=== PATIENT | male | born 1975 | race Caucasian/White ===

== ENCOUNTER 2018-02-18 18:28 | Emergency (ER) | payer BC ==
[2018-02-18] MEDS ORDERED: KETOROLAC 30 MG/ML 1 ML VIAL IVP STA (19:11)
[2018-02-18] MEDS ORDERED: ONDANSETRON 4 MG/2 ML VIAL IVP STA (19:11)
--- NOTE | 2018-02-18 19:16 | ED ---
General Adult HPI - General Chief complaint: Abdominal Pain Stated complaint: Kidney stones Source: patient Mode of arrival: ambulatory Limitations: no limitations - Related Data Home Medications Medication Instructions Recorded Confirmed Calcium Carbonate [Tums] 500 mg PO BID PRN 02/18/18 02/18/18 Ibuprofen [Motrin Ib] 800 mg PO TID PRN 02/18/18 02/18/18 Multivitamins, Thera [Multivitamin 1 tab PO DAILY 02/18/18 02/18/18 (formulary)] Omeprazole 20 mg PO DAILY PRN 02/18/18 02/18/18 Previous Rx's Medication Instructions Recorded HYDROcodone/APAP 5-325MG [[place] 1 tab PO Q6HR PRN 3 Days #12 tab 02/18/18 5-325] Ketorolac [Toradol] 10 mg PO Q6HR PRN #12 tab 02/18/18 Ondansetron Odt [Zofran Odt] 4 mg PO Q8HR PRN #12 tab 02/18/18 Tamsulosin HCl [Flomax] 0.4 mg PO DAILY 12 Days #12 capsule 02/18/18 Allergies Allergy/AdvReac Type Severity Reaction Status Date / Time No Known Allergies Allergy Verified 02/18/18 19:39 Review of Systems ROS Statement: Those systems with pertinent positive or pertinent negative responses have been documented in the HPI. ROS Other: All systems not noted in ROS Statement are negative. Past Medical History Additional Past Medical History / Comment(s): kidney stones History of Any Multi-Drug Resistant Organisms: None Reported Past Surgical History: Appendectomy Past Psychological History: No Psychological Hx Reported Smoking Status: Never smoker Past Alcohol Use History: None Reported, Rare Past Drug Use History: None Reported General Exam Limitations: no limitations Course Vital Signs 02/18/18 18:40 Temperature 98.9 F Pulse Rate 96 Respiratory 18 Rate Blood Pressure 153/100 O2 Sat by Pulse 96 Oximetry Medical Decision Making - Medical Decision Making Dictation was produced using [employer] dictation software. please excuse any grammatical, word or spelling errors. Chief Complaint: 43-year-old male past medical history of kidney stones presents with left lower quadrant abdominal pain. History of Present Illness: She states he had an episode approximately 1 week ago. He states that today his symptoms recur. Patient denies any history of diverticulitis. Does report having history of kidney stones. Patient states that his episode started about 4 hours prior to arrival. He states that the pain is constant and located to left lower quadrant radiating to his groin. He states his symptoms aren't typical of his episode of kidney stones. Denies any stool or bowel habit changes. Does complain of nausea but no vomiting. Constitutional symptoms. He is accompanied by family who states he looks pale. The ROS documented in this emergency department record has been reviewed and confirmed by me. Those systems with pertinent positive or negative responses have been documented in the HPI. All other systems are other negative and/or noncontributory. PHYSICAL EXAM: General Impression: Alert and oriented x3, not in acute distress HEENT: Normocephalic atraumatic, extra-ocular movements intact, pupils equal and reactive to light bilaterally, mucous membranes moist. Cardiovascular: Heart regular rate and rhythm, S1&S2 audible, no murmurs, rubs or gallops Chest: Lungs clear to auscultation bilaterally, no rhonchi, no wheeze, no rales Abdomen: Bowel sounds present, abdomen soft, mild tenderness to the left lower quadrant Musculoskeletal: Pulses present and equal in all extremities, no peripheral edema Motor: Power 5/5 bilaterally, no focal deficits noted Neurological: CN II-XII grossly intact, no focal motor or sensory deficits noted Skin: Intact with no visualized rashes Psych: Normal affect and mood ED course: 43-year-old male presents with chief complaint of left lower quadrant abdominal pain/groin pain. Vital signs upon arrival are within acceptable limits. Clinical presentation is suspicious for diverticulitis versus nephrolithiasis. Laboratory evaluation obtained. Leukocytosis 10.9. Rest of CBC unremarkable. Metabolic panel is unremarkable. Urinalysis does not show any signs of urinary tract infections is [address] abdomen and pelvis is obtained showing nephrolithiasis. There is signs of hydronephrosis. There is a left renal calculus and also a proximal ureteral stone. Patient reevaluated given fluids patient appears to be well after fluids and analgesia. Patient given prescription for pain, Flomax and antinausea medication. Patient told to follow -up with his urologist for reevaluation. - Lab Data Result diagrams: 02/18/18 18:59 02/18/18 18:59 Lab Results 02/18/18 02/18/18 02/18/18 Range/Units 18:59 18:59 18:59 WBC 10.9 H (3.8-10.6) k/uL RBC 5.32 (4.30-5.90) m/uL Hgb 15.9 (13.0-17.5) gm/dL Hct 46.0 (39.0-53.0) % MCV 86.5 (80.0-100.0) fL MCH 29.9 (25.0-35.0) pg MCHC 34.5 (31.0-37.0) g/dL RDW 12.9 (11.5-15.5) % Plt Count 173 (150-450) k/uL Neutrophils % 73 % Lymphocytes % 20 % Monocytes % 5 % Eosinophils % 1 % Basophils % 0 % Neutrophils # 7.9 H (1.3-7.7) k/uL Lymphocytes # 2.1 (1.0-4.8) k/uL Monocytes # 0.5 (0-1.0) k/uL Eosinophils # 0.1 (0-0.7) k/uL Basophils # 0.0 (0-0.2) k/uL Sodium 140 (137-145) mmol/L Potassium 4.0 (3.5-5.1) mmol/L Chloride 105 (98-107) mmol/L Carbon Dioxide 24 (22-30) mmol/L Anion Gap 11 mmol/L BUN 14 (9-20) mg/dL Creatinine 1.18 (0.66-1.25) mg/dL Est GFR (CKD-EPI)AfAm 87 (>60 ml/min/1.73 sqM) Est GFR (CKD-EPI)NonAf 75 (>60 ml/min/1.73 sqM) Glucose 155 H (74-99) mg/dL Calcium 9.7 (8.4-10.2) mg/dL Total Bilirubin 0.6 (0.2-1.3) mg/dL AST 69 H (17-59) U/L ALT 118 H (21-72) U/L Alkaline Phosphatase 71 (38-126) U/L Total Protein 7.8 (6.3-8.2) g/dL Albumin 4.4 (3.5-5.0) g/dL Lipase 153 (23-300) U/L Urine Color Yellow Urine Appearance Clear (Clear) Urine pH 7.0 (5.0-8.0) Ur Specific [place] 1.027 (1.001-1.035) Urine Protein 1+ H (Negative) Urine Glucose (UA) Negative (Negative) Urine Ketones Negative (Negative) Urine Blood Moderate H (Negative) Urine Nitrite Negative (Negative) Urine Bilirubin Negative (Negative) Urine Urobilinogen 3.0 (<2.0) mg/dL Ur Leukocyte Esterase Negative (Negative) Urine RBC 44 H (0-5) /hpf Urine WBC 1 (0-5) /hpf Urine Mucus Rare H (None) /hpf Disposition Clinical Impression: Nephrolithiasis Disposition: HOME SELF-CARE Condition: Good Instructions: Kidney Stones (ED) Prescriptions: HYDROcodone/APAP 5-325MG [[place] 5-325] 1 tab PO Q6HR PRN 3 Days #12 tab PRN Reason: Severe Pain Ketorolac [Toradol] 10 mg PO Q6HR PRN #12 tab PRN Reason: Pain Ondansetron Odt [Zofran Odt] 4 mg PO Q8HR PRN #12 tab PRN Reason: Nausea Tamsulosin HCl [Flomax] 0.4 mg PO DAILY 12 Days #12 capsule Is patient prescribed a controlled substance at d/c from ED?: Yes If prescribed controlled substance>3 days was MAPS reviewed?: Prescribed <3 Days Referrals: Yoni Mckeon MD [Primary Care Provider] - 1-2 days Imer Belle MD [STAFF PHYSICIAN] - 1-2 days Time of Disposition: 20:32
[2018-02-18 19:57] LABS: Basophils % (A) 0 %; Eosinophils # (A) 0.1 k/uL (0-0.7); Eosinophils % (A) 1 %; HGB 15.9 gm/dL (13.0-17.5); Lymphocytes # (A) 2.1 k/uL (1.0-4.8); Lymphocytes % (A) 20 %; MCH 29.9 pg (25.0-35.0); MCHC 34.5 g/dL (31.0-37.0); MCV 86.5 fL (80.0-100.0); Mean Platelet Volume 7.8; Monocytes # (A) 0.5 k/uL (0-1.0); Monocytes % (A) 5 %; Neutrophils # (A) 7.9 k/uL (1.3-7.7); Neutrophils % (A) 73 %; Platelet Count 173 k/uL (150-450); RBC 5.32 m/uL (4.30-5.90); RDW 12.9 % (11.5-15.5); WBC 10.9 k/uL (3.8-10.6)
[2018-02-18 20:05] LABS: Albumin 4.4 g/dL (3.5-5.0); Calcium 9.7 mg/dL (8.4-10.2); Total Bilirubin 0.6 mg/dL (0.2-1.3); Total Protein 7.8 g/dL (6.3-8.2)
[2018-02-18 20:07] LABS: Appearance,Urine Clear (Clear); Bilirubin,Urine Negative (Negative); Blood,Urine Moderate (Negative); Color,Urine Yellow; Glucose,Urine (UA) Negative (Negative); Ketones,Urine Negative (Negative); Leukocyte Esterase,Urine Negative (Negative); Mucus,Urine Rare /hpf; Nitrite,Urine Negative (Negative); Protein,Urine 1+ (Negative); RBC,Urine 44 /hpf (0-5); Specific Gravity,Urine 1.027 (1.001-1.035); WBC,Urine 1 /hpf (0-5)
--- NOTE | 2018-02-18 20:09 | CT ---
EXAMINATION TYPE: CT abdomen pelvis w con DATE OF EXAM: 02/18/2018 COMPARISON: March 15, 2012 HISTORY: LLQ pain, nausea CT DLP: 1528.7 mGycm Automated exposure control for dose reduction was used. TECHNIQUE: Helical acquisition of images was performed from the lung bases through the pelvis. CONTRAST: Performed without Oral Contrast and with IV Contrast, patient injected with 100 mL of Isovue 300. FINDINGS: Lung bases are clear. There is no pleural effusion. Heart size is normal. There is no pericardial eff usion. There is fatty infiltration of the liver. The bile ducts are not dilated. Stomach appears norm al. Spleen appears normal. There is no pancreatic mass. Gallbladder is somewhat contracted. There is no adrenal mass. Kidneys show satisfactory contrast opacification. There is left-sided hydro nephrosis and hydroureter. There is 5 mm calculus in the proximal left ureter. Bladder distends jimena hly. There is no inguinal hernia. There is no free fluid in the pelvis. There is no mesenteric edema or adenopathy. There are clips at the cecum. I see no evidence of a linda l obstruction. There is no free air. There is possible 3 mm calculus lower pole left kidney. The lumbar spine is intact. I see no bony destructive process. There is small posterior disc herniati on at L5-S1. IMPRESSION: LEFT-SIDED HYDRONEPHROSIS WITH OBSTRUCTING CALCULUS IN THE PROXIMAL LEFT URETER. SMALL LEFT RENAL RIDDHI CULUS. OBSTRUCTION IS NEW COMPARED TO OLD EXAM.
[2018-02-18] MEDS ORDERED: MORPHINE SULFATE 2 MG/ML SYRINGE IVP STA (20:40)
[2018-02-18 20:53] VITALS: BP 153/92; PULSE 76; RESP 16; TEMP 97.8
== END 2018-02-18 20:52 | disposition home or self-care (01) ==
LOC: EC 18:28
DX: N13.2 Hydronephrosis with renal and ureteral calculous obstruction (principal)
CPT/HCPCS: 36415; 80053; 83690; 85025; 81001; 74177; 99284; 96374; 96375 ×2; J2405; J1885; J2270; Q9967

== ENCOUNTER 2018-12-28 04:29 | Inpatient (IN) | payer BC ==
[2018-12-28] MEDS ORDERED: SODIUM CHLORIDE 0.9% 1,000 ML IV STA (04:55)
[2018-12-28] MEDS ORDERED: ONDANSETRON 4 MG/2 ML VIAL IVP STA ×2 (04:55→06:14)
--- NOTE | 2018-12-28 05:15 | ED ---
General Adult HPI - General Chief complaint: Abdominal Pain Stated complaint: Vomiting,constipated Time Seen by Provider: 12/28/18 04:41 Source: patient, RN notes reviewed Mode of arrival: ambulatory Limitations: no limitations - History of Present Illness Initial comments: 43-year-old male presenting for evaluation of abdominal pain nausea vomiting. Abby whitlock is an otherwise healthy 43-year-old. He has no chronic medical conditions. He has two children who had gastrointestinal illnesses including vomiting and diarrhea. Around 1 AM this morning 4 hours prior to arrival patient had large volume vomiting with crampy generalized abdominal pain. He had a second episode of vomiting which she describes as yellow. He's had diffuse abdominal pain and cramping over the past 4 hours. He reports very low stool output and is presenting emergency department with concern for obstruction. He has previous appendectomy. He reports subjective fever and chills. No right upper quadrant pain. - Related Data Home Medications Medication Instructions Recorded Confirmed Calcium Carbonate [Tums] 500 mg PO BID PRN 02/18/18 02/18/18 Ibuprofen [Motrin Ib] 800 mg PO TID PRN 02/18/18 02/18/18 Multivitamins, Thera [Multivitamin 1 tab PO DAILY 02/18/18 02/18/18 (formulary)] Omeprazole 20 mg PO DAILY PRN 02/18/18 02/18/18 Previous Rx's Medication Instructions Recorded HYDROcodone/APAP 5-325MG [[place] 1 tab PO Q6HR PRN 3 Days #12 tab 02/18/18 5-325] Ketorolac [Toradol] 10 mg PO Q6HR PRN #12 tab 02/18/18 Ondansetron Odt [Zofran Odt] 4 mg PO Q8HR PRN #12 tab 02/18/18 Tamsulosin HCl [Flomax] 0.4 mg PO DAILY 12 Days #12 capsule 02/18/18 Allergies Allergy/AdvReac Type Severity Reaction Status Date / Time No Known Allergies Allergy Verified 12/28/18 04:36 Review of Systems ROS Statement: Those systems with pertinent positive or pertinent negative responses have been documented in the HPI. ROS Other: All systems not noted in ROS Statement are negative. Past Medical History Additional Past Medical History / Comment(s): kidney stones History of Any Multi-Drug Resistant Organisms: None Reported Past Surgical History: Appendectomy Past Psychological History: No Psychological Hx Reported Smoking Status: Never smoker Past Alcohol Use History: Rare Past Drug Use History: None Reported General Exam Limitations: no limitations General appearance: alert, in no apparent distress Head exam: Present: atraumatic, normocephalic Eye exam: Present: normal appearance, PERRL ENT exam: Present: mucous membranes dry Neck exam: Present: normal inspection. Absent: tenderness, meningismus Respiratory exam: Present: normal lung sounds bilaterally. Absent: respiratory distress, wheezes Cardiovascular Exam: Present: regular rate, normal rhythm GI/Abdominal exam: Present: soft, tenderness (Minimal generalized tenderness). Absent: distended, guarding, rebound Extremities exam: Present: normal inspection Neurological exam: Present: alert, oriented X3. Absent: motor sensory deficit Skin exam: Present: warm, dry, intact. Absent: cyanosis, diaphoretic Course Vital Signs 12/28/18 12/28/18 04:34 06:21 Temperature 98.9 F Pulse Rate 105 H 86 Respiratory 20 18 Rate Blood Pressure 123/87 131/98 O2 Sat by Pulse 96 96 Oximetry Medical Decision Making - Medical Decision Making 43 -year-old presenting with vomiting generalized abdominal pain. Patient's abdomen is soft, mildly tender. His children had a gastrointestinal illness with vomiting and diarrhea. He has not progressed to diarrhea since the onset of his symptoms. X-rays obtained, shows ileus versus developing small bowel obstruction. CT is performed which shows dilated small bowel concerning for developing small bowel obstruction although there is no transition point. CT also does show any millimeter obstructing renal calculus at the left UVJ. Patient has dealt with kidney stones and states he has had flank pain for several days. No reported hematuria. He has normal CBC with no leukocytosis. Normal electrolytes. Urinalysis shows 1+ ketones consistent with dehydration and 9 red cells with 6 white cells and rare bacteria. Urine culture will be obtained. Patient will be admitted for symptom control for possibility of developing small bowel obstruction. History is more suggestive of gastrointestinal illness by will observe for possible small bowel obstruction. Case discussed with Dr. Mckeon who will admit. Gen. surgery placed on consult. - Lab Data Result diagrams: 12/28/18 05:15 12/28/18 05:15 Lab Results 12/28/18 12/28/18 12/28/18 Range/Units 05:15 05:15 05:15 WBC 10.2 (3.8-10.6) k/uL RBC 5.66 (4.30-5.90) m/uL Hgb 17.3 (13.0-17.5) gm/dL Hct 49.3 (39.0-53.0) % MCV 87.1 (80.0-100.0) fL MCH 30.5 (25.0-35.0) pg MCHC 35.0 (31.0-37.0) g/dL RDW 12.5 (11.5-15.5) % Plt Count 194 (150-450) k/uL Neutrophils % 88 % Lymphocytes % 7 % Monocytes % 4 % Eosinophils % 0 % Basophils % 0 % Neutrophils # 9.0 H (1.3-7.7) k/uL Lymphocytes # 0.7 L (1.0-4.8) k/uL Monocytes # 0.4 (0-1.0) k/uL Eosinophils # 0.0 (0-0.7) k/uL Basophils # 0.0 (0-0.2) k/uL Sodium 139 (137-145) mmol/L Potassium 4.2 (3.5-5.1) mmol/L Chloride 104 (98-107) mmol/L Carbon Dioxide 22 (22-30) mmol/L Anion Gap 13 mmol/L BUN 19 (9-20) mg/dL Creatinine 1.12 (0.66-1.25) mg/dL Est GFR (CKD-EPI)AfAm >90 (>60 ml/min/1.73 sqM) Est GFR (CKD-EPI)NonAf 80 (>60 ml/min/1.73 sqM) Glucose 176 H (74-99) mg/dL Calcium 9.8 (8.4-10.2) mg/dL Total Bilirubin 1.0 (0.2-1.3) mg/dL AST 42 (17-59) U/L ALT 60 (21-72) U/L Alkaline Phosphatase 69 (38-126) U/L Total Protein 8.4 H (6.3-8.2) g/dL Albumin 4.7 (3.5-5.0) g/dL Lipase 72 (23-300) U/L Urine Color Yellow Urine Appearance Cloudy (Clear) Urine pH 6.0 (5.0-8.0) Ur Specific [place] 1.035 (1.001-1.035) Urine Protein 2+ H (Negative) Urine Glucose (UA) Trace H (Negative) Urine Ketones 1+ H (Negative) Urine Blood Moderate H (Negative) Urine Nitrite Negative (Negative) Urine Bilirubin Negative (Negative) Urine Urobilinogen <2.0 (<2.0) mg/dL Ur Leukocyte Esterase Negative (Negative) Urine RBC 9 H (0-5) /hpf Urine WBC 6 H (0-5) /hpf Ur Squamous Epith Cells 1 (0-4) /hpf Amorphous Sediment Occasional H (None) /hpf Urine Bacteria Rare H (None) /hpf Hyaline Casts 23 H (0-2) /lpf Urine Mucus Many H (None) /hpf Disposition Clinical Impression: Small bowel obstruction Disposition: ADMITTED IP TO THIS HOSP Condition: Stable Is patient prescribed a controlled substance at d/c from ED?: No Referrals: Yoni Mckeon MD [Primary Care Provider] - 1-2 days Time of Disposition: 06:37
--- NOTE | 2018-12-28 05:28 | XR ---
Abdomen single view. History abdominal pain. Comparison to 413. FINDINGS: There are some small bowel fluid levels in the upper abdomen. There clips in the right lower quadrant . There is no sign of free air. IMPRESSION: Distended small bowel with air-fluid levels could relate to partial mechanical obstruction or small b owel ileus that is a change compared to last exam. No free air.
[2018-12-28 05:54] LABS: ALT 60 U/L (21-72); AST 42 U/L (17-59); African American GFR (CKD) >90 (>60 ml/min/1.73 sqM); Albumin 4.7 g/dL (3.5-5.0); Alkaline Phosphatase 69 U/L (38-126); Anion Gap 13 mmol/L; Blood Urea Nitrogen 19 mg/dL (9-20); Calcium 9.8 mg/dL (8.4-10.2); Carbon Dioxide 22 mmol/L (22-30); Chloride 104 mmol/L (98-107); Glucose 176 mg/dL (74-99); Non-African American GFR(CKD) 80 (>60 ml/min/1.73 sqM); Potassium 4.2 mmol/L (3.5-5.1); Sodium 139 mmol/L (137-145); Total Protein 8.4 g/dL (6.3-8.2)
[2018-12-28 06:02] LABS: Amorphous Sediment,Urine Occasional /hpf; Appearance,Urine Cloudy (Clear); Bacteria,Urine Rare /hpf; Bilirubin,Urine Negative (Negative); Blood,Urine Moderate (Negative); Color,Urine Yellow; Glucose,Urine (UA) Trace (Negative); Hyaline Casts,Urine 23 /lpf (0-2); Ketones,Urine 1+ (Negative); Leukocyte Esterase,Urine Negative (Negative); Mucus,Urine Many /hpf; Nitrite,Urine Negative (Negative); Protein,Urine 2+ (Negative); RBC,Urine 9 /hpf (0-5); Specific Gravity,Urine 1.035 (1.001-1.035); Squamous Epithelial Cell,Urine 1 /hpf (0-4); Urobilinogen,Urine <2.0 mg/dL (<2.0); WBC,Urine 6 /hpf (0-5)
[2018-12-28] MEDS ORDERED: HYDROmorphone 1 MG/ML 1 ML SYRINGE IVP STA (06:02)
[2018-12-28] MEDS ORDERED: SODIUM CHLORIDE 0.9% 500 ML 500 ML IV ONE (06:03)
[2018-12-28 06:09] LABS: Basophils % (A) 0 %; Eosinophils % (A) 0 %; HCT 49.3 % (39.0-53.0); HGB 17.3 gm/dL (13.0-17.5); Lymphocytes # (A) 0.7 k/uL (1.0-4.8); Lymphocytes % (A) 7 %; MCH 30.5 pg (25.0-35.0); MCV 87.1 fL (80.0-100.0); Mean Platelet Volume 6.5; Monocytes # (A) 0.4 k/uL (0-1.0); Monocytes % (A) 4 %; Neutrophils % (A) 88 %; Platelet Count 194 k/uL (150-450); RBC 5.66 m/uL (4.30-5.90); RDW 12.5 % (11.5-15.5); WBC 10.2 k/uL (3.8-10.6)
--- NOTE | 2018-12-28 06:09 | CT ---
EXAMINATION TYPE: CT abdomen pelvis w con DATE OF EXAM: 12/28/2018 COMPARISON: 02/18/2018 HISTORY: abd pain CT DLP: 1553.1 mGycm Automated exposure control for dose reduction was used. TECHNIQUE: Helical acquisition of images was performed from the lung bases through the pelvis. CONTRAST: Performed without Oral Contrast and with IV Contrast, patient injected with 100 mL of Isovue 370. FINDINGS: Lung bases are clear. There is no pleural effusion. Heart size is normal. Stomach appears normal. Liver spleen pancreas appear normal. Bile ducts are not dilated. Gallbladder appears absent. There is no adrenal mass. There is slight decreased left sided nephrogram compared to the right. Ther e is left side hydronephrosis. There is a 4 mm calculus lower pole left kidney. There is left-sided h ydroureter and 8 mm calculus at the left ureterovesical junction. There are clips from cholecystectom y. Right kidney shows normal excretion with no hydronephrosis. There is no retroperitoneal adenopathy . There are some dilated fluid-filled loops of small bowel in the upper abdomen. These measure up to 4. 2 cm. The terminal ileum is not dilated. There is no discrete transition point. There is no mesenteric edema. There is no ascites or free air. Lumbar spine is intact. Bony pelvis is intact. IMPRESSION: THERE IS OBSTRUCTING CALCULUS AT THE LEFT URETEROVESICAL JUNCTION WITH LEFT-SIDED HYDRONEPHROSIS AND HYDROURETER. SMALL LEFT RENAL CALCULUS. DILATED PROXIMAL SMALL BOWEL CONSISTENT WITH ILEUS OR MECHANICAL BOWEL OBSTRUCTION IS A CHANGE COMPAR ED TO OLD EXAM. THERE IS MIGRATION OF THE LEFT URETERAL STONE FROM THE PROXIMAL LEFT URETER COMPARED TO OLD EXAM.
[2018-12-28] MEDS ORDERED: cefTRIAXone IN SWFI 1,000 MG/10 ML SYRINGE IVP STA (06:25)
[2018-12-28] MEDS ORDERED: NALOXONE 0.4 MG/ML 1 ML VIAL IV PRN (06:30)
[2018-12-28] MEDS ORDERED: HYDROmorphone 0.5 MG/0.5 ML SYRINGE IVP PRN (06:30)
[2018-12-28] MEDS ORDERED: ONDANSETRON 4 MG/2 ML VIAL IVP PRN (06:30)
[2018-12-28] MEDS: SODIUM CHLORIDE 0.9% 1,000 ML IV SCH ×2 (06:50→20:04)
[2018-12-28] MEDS ORDERED: TAMSULOSIN 0.4 MG CAP.ER.24H PO STA (07:02)
[2018-12-28] MEDS: HYDROmorphone 1 MG/ML 1 ML SYRINGE IVP PRN ×5 (08:55→23:13)
--- NOTE | 2018-12-28 13:40 | P.HPIM ---
History of Present Illness H&P Date: 12/28/18 Chief Complaint: Abdominal pain with left-sided flank pain. The patient is here essentially because of recurrent left ureteral calculus. It is obstructing on exam and he has significant hydroureter with hydronephrosis. Consequently, he has significant small bowel obstruction ileus noted. He has been exposed to gastroenteritis type virus home with his children. There was significant nausea noted. He is now admitted for appropriate hydration and would surgical and urological consultation. The patient's pain is fairly well controlled. Review of Systems Constitutional: Denies chills, Denies fever Eyes: denies blurred vision, denies pain Ears, nose, mouth and throat: Denies headache, Denies sore throat Cardiovascular: Denies chest pain, Denies shortness of breath Respiratory: Denies cough Gastrointestinal: Reports as per HPI, Reports abdominal pain, Reports nausea, Reports vomiting Musculoskeletal: Denies myalgias Integumentary: Denies pruritus, Denies rash Neurological: Denies numbness, Denies weakness Past Medical History Past Medical History: GERD/Reflux, Renal Disease Additional Past Medical History / Comment(s): kidney stones-pt states he has pas sed one on his own, occasional back pain, tonsillitis History of Any Multi-Drug Resistant Organisms: None Reported Past Surgical History: Appendectomy Past Anesthesia/Blood Transfusion Reactions: No Reported Reaction Smoking Status: Former smoker - Past Family History Father Additional Family Medical History / Comment(s): Mitral valve disease Mother Family Medical History: No Reported History Additional Family Medical History / Comment(s): Mother is healthy Medications and Allergies Home Medications Medication Instructions Recorded Confirmed Type Ibuprofen [Motrin Ib] 400 mg PO Q6H PRN 02/18/18 12/28/18 History Multivitamins, Thera [Multivitamin 1 tab PO DAILY 02/18/18 12/28/18 History (formulary)] Omeprazole Magnesium [PriLOSEC OTC] 20 mg PO DAILY PRN 12/28/18 12/28/18 History Allergies Allergy/AdvReac Type Severity Reaction Status Date / Time No Known Allergies Allergy Verified 12/28/18 08:34 Physical Exam Vitals: Vital Signs Temp Pulse Pulse Resp BP BP Pulse Ox 12/28/18 07:00 98.1 F 95 16 153/77 95 12/28/18 06:21 86 18 131/98 96 12/28/18 04:34 98.9 F 105 H 20 123/87 96 Intake and Output 12/27/18 12/28/18 12/28/18 22:59 06:59 14:59 Other: Weight 104.326 kg - Constitutional General appearance: no acute distress - EENT Eyes: EOMI - Neck Neck: no lymphadenopathy - Respiratory Respiratory: bilateral: CTA - Cardiovascular Rhythm: regular Heart sounds: normal: S1, S2 Abnormal Heart Sounds: no S3 Gallop - Gastrointestinal General gastrointestinal: decreased bowel sounds, soft, tenderness - Integumentary Integumentary: no cellulitis - Musculoskeletal Musculoskeletal: no generalized weakness - Psychiatric Psychiatric: A&O x's 3, appropriate affect, intact judgment & insight Results CBC & Chem 7: 12/28/18 05:15 12/28/18 05:15 Labs: Abnormal Lab Results - Last 24 Hours (Table) 12/28/18 12/28/18 12/28/18 Range/Units 05:15 05:15 05:15 Neutrophils # 9.0 H (1.3-7.7) k/uL Lymphocytes # 0.7 L (1.0-4.8) k/uL Glucose 176 H (74-99) mg/dL Total Protein 8.4 H (6.3-8.2) g/dL Urine Protein 2+ H (Negative) Urine Glucose (UA) Trace H (Negative) Urine Ketones 1+ H (Negative) Urine Blood Moderate H (Negative) Urine RBC 9 H (0-5) /hpf Urine WBC 6 H (0-5) /hpf Amorphous Sediment Occasional H (None) /hpf Urine Bacteria Rare H (None) /hpf Hyaline Casts 23 H (0-2) /lpf Urine Mucus Many H (None) /hpf Thrombosis Risk Factor Assmnt - Choose All That Apply Any of the Below Risk Factors Present?: Yes Each Factor Represents 1 point: Age 41-60 years, Obesity (BMI >25) Other Risk Factors: No Other congenital or acquired thrombophilia - If yes, enter type in comment: No Thrombosis Risk Factor Assessment Total Risk Factor Score: 2 Thrombosis Risk Factor Assessment Level: Low Risk Assessment and Plan (1) Nephrolithiasis Current Visit: Yes Status: Acute Code(s): N20.0 - CALCULUS OF KIDNEY SNOMED Code(s): 88567062 (2) Hydronephrosis concurrent with and due to calculi of kidney and ureter Current Visit: Yes Status: Acute Code(s): N13.2 - HYDRONEPHROSIS WITH RENAL AND URETERAL CALCULOUS OBSTRUCTION SNOMED Code(s): 797770569 (3) Small bowel obstruction Current Visit: Yes Status: Acute Code(s): K56.609 - UNSP INTESTNL OBST, UNSP TO PARTIAL VERSUS COMPLETE OBST SNOMED Code(s): 824704774 Plan: Continue IV hydration. Appropriate pain control. Consult general surgery with urology. Advance diet as per surgery. Check CBC and CMP in a.m.
--- NOTE | 2018-12-28 14:33 | P.GSHP ---
History of Present Illness H&P Date: 12/28/18 This is a 43-year-old gentleman who for the last 2 weeks is been attempting to pass a left ureteral calculus. The patient is passed 3 this year. He has a known history of stones. He developed hematuria and dysuria couple weeks ago. The last 24 hours as developed significant abdominal back pain. The question whether this was the flu as there has been flu in the family. He has had decreased bowel movements and gas. A computed tomography scan identified an 8 mm stone at the left ureterovesical junction with hydronephrosis. There is also a 3-4 mm left lower pole stone. He is never had surgery for the stones. There's been no fever or chills. White count is 10,000. Urinalysis is not c onsistent with an infection. - Gastrointestinal Gastrointestinal: Reports abdominal pain, Reports constipation Past Medical History Past Medical History: GERD/Reflux, Renal Disease Additional Past Medical History / Comment(s): kidney stones-pt states he has passed one on his own, occasional back pain, tonsillitis History of Any Multi-Drug Resistant Organisms: None Reported Past Surgical History: Appendectomy Past Anesthesia/Blood Transfusion Reactions: No Reported Reaction Smoking Status: Former smoker - Past Family History Father Additional Family Medical History / Comment(s): Mitral valve disease Mother Family Medical History: No Reported History Additional Family Medical History / Comment(s): Mother is healthy Medications and Allergies Home Medications Medication Instructions Recorded Confirmed Type Ibuprofen [Motrin Ib] 400 mg PO Q6H PRN 02/18/18 12/28/18 History Multivitamins, Thera [Multivitamin 1 tab PO DAILY 02/18/18 12/28/18 History (formulary)] Omeprazole Magnesium [PriLOSEC OTC] 20 mg PO DAILY PRN 12/28/18 12/28/18 History Allergies Allergy/AdvReac Type Severity Reaction Status Date / Time No Known Allergies Allergy Verified 12/28/18 08:34 Surgical - Exam Vital Signs Temp Pulse Resp BP Pulse Ox 98.9 F 105 H 20 123/87 96 12/28/18 04:34 12/28/18 04:34 12/28/18 04:34 12/28/18 04:34 12/28/18 04:34 - General well developed, well nourished, moderate distress - Eyes PERRL - ENT no hearing loss - Neck trachea midline - Respiratory normal expansion, normal respiratory effort - Cardiovascular Rhythm: regular - Abdomen Mild tenderness left lower quadrant Abdomen: soft, non tender - Genitourinary normal penis with no external lesions, testicles present - Integumentary no rash, no growths - Musculoskeletal normal gait, normal posture - Psychiatric oriented to time, oriented to person, oriented to place, speech is normal, memory intact Results - Labs 12/28/18 05:15 12/28/18 05:15 Abnormal Lab Results - Last 24 Hours (Table) 12/28/18 12/28/18 12/28/18 Range/Units 05:15 05:15 05:15 Neutrophils # 9.0 H (1.3-7.7) k/uL Lymphocytes # 0.7 L (1.0-4.8) k/uL Glucose 176 H (74-99) mg/dL Total Protein 8.4 H (6.3-8.2) g/dL Urine Protein 2+ H (Negative) Urine Glucose (UA) Trace H (Negative) Urine Ketones 1+ H (Negative) Urine Blood Moderate H (Negative) Urine RBC 9 H (0-5) /hpf Urine WBC 6 H (0-5) /hpf Amorphous Sediment Occasional H (None) /hpf Urine Bacteria Rare H (None) /hpf Hyaline Casts 23 H (0-2) /lpf Urine Mucus Many H (None) /hpf Diabetes panel 12/28/18 Range/Units 05:15 Sodium 139 (137-145) mmol/L Potassium 4.2 (3.5-5.1) mmol/L Chloride 104 (98-107) mmol/L Carbon Dioxide 22 (22-30) mmol/L BUN 19 (9-20) mg/dL Creatinine 1.12 (0.66-1.25) mg/dL Glucose 176 H (74-99) mg/dL Calcium 9.8 (8.4-10.2) mg/dL AST 42 (17-59) U/L ALT 60 (21-72) U/L Alkaline Phosphatase 69 (38-126) U/L Total Protein 8.4 H (6.3-8.2) g/dL Albumin 4.7 (3.5-5.0) g/dL Calcium panel 12/28/18 Range/Units 05:15 Calcium 9.8 (8.4-10.2) mg/dL Albumin 4.7 (3.5-5.0) g/dL Pituitary panel 12/28/18 Range/Units 05:15 Sodium 139 (137-145) mmol/L Potassium 4.2 (3.5-5.1) mmol/L Chloride 104 (98-107) mmol/L Carbon Dioxide 22 (22-30) mmol/L BUN 19 (9-20) mg/dL Creatinine 1.12 (0.66-1.25) mg/dL Glucose 176 H (74-99) mg/dL Calcium 9.8 (8.4-10.2) mg/dL Adrenal panel 12/28/18 Range/Units 05:15 Sodium 139 (137-145) mmol/L Potassium 4.2 (3.5-5.1) mmol/L Chloride 104 (98-107) mmol/L Carbon Dioxide 22 (22-30) mmol/L BUN 19 (9-20) mg/dL Creatinine 1.12 (0.66-1.25) mg/dL Glucose 176 H (74-99) mg/dL Calcium 9.8 (8.4-10.2) mg/dL Total Bilirubin 1.0 (0.2-1.3) mg/dL AST 42 (17-59) U/L ALT 60 (21-72) U/L Alkaline Phosphatase 69 (38-126) U/L Total Protein 8.4 H (6.3-8.2) g/dL Albumin 4.7 (3.5-5.0) g/dL - Imaging Abdominal x-ray: report reviewed, image reviewed CT scan - abdomen: report reviewed, image reviewed CT scan - pelvis: report reviewed, image reviewed Assessment and Plan Assessment: Impression: Left ureteral calculus with obstruction. Secondary ileus Recommendations: This patient has been attempting to pass this large ureteral stone for the last 2 weeks. He has been on Dilaudid ever since his in the hospital. After discussing this with the patient and his he wishes that I proceed with left ureteroscopy and laser lithotripsy. This will be set up for 12/29/2018
--- NOTE | 2018-12-28 14:51 | P.GSCN ---
History of Present Illness Consult date: 12/28/18 Reason for Consult: Ileus versus small bowel obstruction Requesting physician: Marcell Vásquez History of present illness: CHIEF COMPLAINT: Ileus versus small bowel obstruction HISTORY OF PRESENT ILLNESS: 43-year-old male who presented to the emergency room with a chief complaint of abdominal pain, nausea, and vomiting. Patient reports his two children have been sick with gastroenteritis over the past 2-3 days. Patient reports to be an having generalized lower quadrant abdominal pain yesterday along with nausea and 2 large episodes of emesis. Patient reports he is passing flatus this morning. Last bowel movement was yesterday. Patient denies any further nausea or vomiting this morning. PAST MEDICAL HISTORY: See list. PAST SURGICAL HISTORY: See list. SOCIAL HISTORY: No illicit drug use. REVIEW OF SYSTEMS: CONSTITUTIONAL: Denies fever or chills. HEENT: Denies blurred vision, vision changes, or eye pain. Denies hemoptysis CARDIOVASCULAR: Denies chest pain or pressure. RESPIRATORY: No shortness of breath. GASTROINTESTINAL: Refer to HPI for pertinent findings HEMATOLOGIC: Denies bleeding disorders. GENITOURINARY: Denies any blood in urine. SKIN: Denies pruitis. Denies rash. PHYSICAL EXAM: VITAL SIGNS: Reviewed. GENERAL: Well-developed in no acute distress. HEENT: No sclera icterus. Extraocular movements grossly intact. Moist buccal mucosa. Head is atraumatic, normocephalic. ABDOMEN: Soft. Nondistended. Tenderness upon palpation of bilateral lower quadrants. NEUROLOGIC: Alert and oriented. Cranial nerves II through XII grossly intact. LABORATORY DATA: WBC 10.2. Hemoglobin 17.3. Platelet count 194. Sodium 139. Potassium 4.2. BUN 19. Creatinine 1.12. Glucose 176. IMAGING: CT abdomen pelvis: Obstructing renal calculus at the left ureterovesicular junction with left-sided hydronephrosis and hydroureter. Small left renal calculus. Dilated proximal small bowel consistent with ileus or mechanical bowel obstruction. ASSESSMENT: 1. Abdominal pain, nausea, vomiting 2. Possible ileus, favored over small bowel obstruction PLAN: 1. Urology on consult. Patient scheduled for cystoscopy, left ureteroscopy with laser lithotripsy and left stent insertion with Dr. Maldonado 12/29/18. 2. Do not suspect patient has a mechanical bowel obstruction. Possible mild ileus. May be secondary to viral gastroenteritis as his children have been sick over the past 2-3 days with nausea, vomiting, and diarrhea. 3. Okay for clear liquid diet from a general surgery standpoint 4. No surgical intervention recommended at this time Nurse practitioner note has been reviewed by physician. Signing provider agrees with the documented findings, assessment, and plan of care. Past Medical History Past Medical History: GERD/Reflux, Renal Disease Additional Past Medical History / Comment(s): kidney stones-pt states he has passed one on his own, occasional back pain, tonsillitis History of Any Multi-Drug Resistant Organisms: None Reported Past Surgical History: Appendectomy Past Anesthesia/Blood Transfusion Reactions: No Reported Reaction Smoking Status: Former smoker - Past Family History Father Additional Family Medical History / Comment(s): Mitral valve disease Mother Family Medical History: No Reported History Additional Family Medical History / Comment(s): Mother is healthy Medications and Allergies Home Medications Medication Instructions Recorded Confirmed Type Ibuprofen [Motrin Ib] 400 mg PO Q6H PRN 02/18/18 12/28/18 History Multivitamins, Thera [Multivitamin 1 tab PO DAILY 02/18/18 12/28/18 History (formulary)] Omeprazole Magnesium [PriLOSEC OTC] 20 mg PO DAILY PRN 12/28/18 12/28/18 History Allergies Allergy/AdvReac Type Severity Reaction Status Date / Time No Known Allergies Allergy Verified 12/28/18 08:34 Surgical - Exam Vital Signs Temp Pulse Resp BP Pulse Ox 98.9 F 105 H 20 123/87 96 12/28/18 04:34 12/28/18 04:34 12/28/18 04:34 12/28/18 04:34 12/28/18 04:34 Results - Labs 12/28/18 05:15 12/28/18 05:15 Abnormal Lab Results - Last 24 Hours (Table) 12/28/18 12/28/18 12/28/18 Range/Units 05:15 05:15 05:15 Neutrophils # 9.0 H (1.3-7.7) k/uL Lymphocytes # 0.7 L (1.0-4.8) k/uL Glucose 176 H (74-99) mg/dL Total Protein 8.4 H (6.3-8.2) g/dL Urine Protein 2+ H (Negative) Urine Glucose (UA) Trace H (Negative) Urine Ketones 1+ H (Negative) Urine Blood Moderate H (Negative) Urine RBC 9 H (0-5) /hpf Urine WBC 6 H (0-5) /hpf Amorphous Sediment Occasional H (None) /hpf Urine Bacteria Rare H (None) /hpf Hyaline Casts 23 H (0-2) /lpf Urine Mucus Many H (None) /hpf Diabetes panel 12/28/18 Range/Units 05:15 Sodium 139 (137-145) mmol/L Potassium 4.2 (3.5-5.1) mmol/L Chloride 104 (98-107) mmol/L Carbon Dioxide 22 (22-30) mmol/L BUN 19 (9-20) mg/dL Creatinine 1.12 (0.66-1.25) mg/dL Glucose 176 H (74-99) mg/dL Calcium 9.8 (8.4-10.2) mg/dL AST 42 (17-59) U/L ALT 60 (21-72) U/L Alkaline Phosphatase 69 (38-126) U/L Total Protein 8.4 H (6.3-8.2) g/dL Albumin 4.7 (3.5-5.0) g/dL Calcium panel 12/28/18 Range/Units 05:15 Calcium 9.8 (8.4-10.2) mg/dL Albumin 4.7 (3.5-5.0) g/dL Pituitary panel 12/28/18 Range/Units 05:15 Sodium 139 (137-145) mmol/L Potassium 4.2 (3.5-5.1) mmol/L Chloride 104 (98-107) mmol/L Carbon Dioxide 22 (22-30) mmol/L BUN 19 (9-20) mg/dL Creatinine 1.12 (0.66-1.25) mg/dL Glucose 176 H (74-99) mg/dL Calcium 9.8 (8.4-10.2) mg/dL Adrenal panel 12/28/18 Range/Units 05:15 Sodium 139 (137-145) mmol/L Potassium 4.2 (3.5-5.1) mmol/L Chloride 104 (98-107) mmol/L Carbon Dioxide 22 (22-30) mmol/L BUN 19 (9-20) mg/dL Creatinine 1.12 (0.66-1.25) mg/dL Glucose 176 H (74-99) mg/dL Calcium 9.8 (8.4-10.2) mg/dL Total Bilirubin 1.0 (0.2-1.3) mg/dL AST 42 (17-59) U/L ALT 60 (21-72) U/L Alkaline Phosphatase 69 (38-126) U/L Total Protein 8.4 H (6.3-8.2) g/dL Albumin 4.7 (3.5-5.0) g/dL
[2018-12-29] MEDS: SODIUM CHLORIDE 0.9% 1,000 ML IV SCH (05:32)
[2018-12-29 08:27] LABS: HCT 40.8 % (39.0-53.0); MCH 29.6 pg (25.0-35.0); MCHC 33.7 g/dL (31.0-37.0); MCV 87.8 fL (80.0-100.0); Mean Platelet Volume 6.6; Platelet Count 142 k/uL (150-450); RBC 4.64 m/uL (4.30-5.90); RDW 12.5 % (11.5-15.5)
[2018-12-29 08:32] LABS: HGB 13.8 gm/dL (13.0-17.5)
[2018-12-29 08:42] LABS: Albumin 3.4 g/dL (3.5-5.0); Calcium 8.4 mg/dL (8.4-10.2); Potassium 3.6 mmol/L (3.5-5.1); Total Bilirubin 0.7 mg/dL (0.2-1.3); Total Protein 6.4 g/dL (6.3-8.2)
[2018-12-29] MEDS ORDERED: IV FLUID CONTINUATION 1,000 ML IV ONE (10:39)
--- NOTE | 2018-12-29 10:59 | P.PN ---
Subjective Progress Note Date: 12/29/18 CHIEF COMPLAINT: Ileus versus small bowel obstruction HISTORY OF PRESENT ILLNESS: Patient examined this morning at the bedside. Patient reports resolution of abdominal pain. He denies nausea or vomiting. He is passing flatus. Denies bowel movement. Vital signs stable. Temperature this morning 99.5. PHYSICAL EXAM: VITAL SIGNS: Reviewed. GENERAL: Well-developed in no acute distress. HEENT: No sclera icterus. Extraocular movements grossly intact. Moist buccal mucosa. Head is atraumatic, normocephalic. ABDOMEN: Soft. Nondistended. Nontender. Positive bowel sounds. NEUROLOGIC: Alert and oriented. Cranial nerves II through XII grossly intact. ASSESSMENT: 1. Abdominal pain, nausea, vomiting 2. Possible ileus, favored over small bowel obstruction PLAN: 1. Urology on consult. Patient scheduled for cystoscopy, left ureteroscopy with laser lithotripsy and left stent insertion with Dr. Maldonado 12/29/18. 2. Do not suspect patient has a mechanical bowel obstruction. Possible mild ileus. May be secondary to viral gastroenteritis as his children have been sick over the past 2-3 days with nausea, vomiting, and diarrhea. 3. Okay for clear liquid diet from a general surgery standpoint 4. No surgical intervention recommended at this time Nurse practitioner note has been reviewed by physician. Signing provider agrees with the documented findings, assessment, and plan of care. Objective - Vital Signs Vital signs: Vital Signs Temp 99.5 F 12/29/18 10:51 Pulse 98 12/29/18 10:51 Resp 16 12/29/18 10:51 BP 117/60 12/29/18 10:51 Pulse Ox 95 12/29/18 10:51 Intake & Output 12/28/18 12/29/18 12/29/18 18:59 06:59 18:59 Intake Total 1005 600 Balance 1005 600 Intake: Intake, IV Titration 525 Amount Sodium Chloride 0.9% 1, 525 000 ml @ 75 mls/hr IV . [id number] Rx#:[id number] Oral 480 600 Other: Voiding Method Toilet Toilet Urinal Urinal # Voids 1 - Labs CBC & Chem 7: 12/29/18 07:26 12/29/18 07:26 Labs: Abnormal Lab Results - Last 24 Hours (Table) 12/29/18 12/29/18 Range/Units 07:26 07:26 Plt Count 142 L (150-450) k/uL Creatinine 1.29 H (0.66-1.25) mg/dL Glucose 112 H (74-99) mg/dL Albumin 3.4 L (3.5-5.0) g/dL Microbiology - Last 24 Hours (Table) 12/28/18 09:00 Urine Culture - Preliminary Urine,Voided
[2018-12-29] MEDS ORDERED: KETAMINE 10 MG/ML 20 ML VIAL ONE (11:20)
[2018-12-29] MEDS ORDERED: MIDAZOLAM 2 MG/2 ML VIAL ONE (11:20)
[2018-12-29] MEDS ORDERED: ePHEDrine SULFATE/0.9% NACL/PF 50 MG/5 ML SYRINGE IV ONE (11:20)
[2018-12-29] MEDS ORDERED: PROPOFOL 10 MG/ML 20 ML VIAL IV ONE (11:20)
[2018-12-29] MEDS ORDERED: fentaNYL (PF) 50 MCG/ML 2 ML AMP ONE (11:20)
[2018-12-29] MEDS ORDERED: LIDOCAINE 1% INJ 10MG/ML (20 ML MDV) ONE (11:20)
[2018-12-29] MEDS ORDERED: KETOROLAC 30 MG/ML 1 ML VIAL IVP ONE (11:22)
--- NOTE | 2018-12-29 12:21 | P.OP ---
Date of Procedure: 12/29/18 Preoperative Diagnosis: Left ureteral stone Postoperative Diagnosis: Same Procedure(s) Performed: Cystoscopy, left ureteroscopy laser lithotripsy, placement of 626 stent Anesthesia: SANDRO Surgeon: César Maldonado Estimated Blood Loss (ml): 0 Pathology: other (Stone) Condition: stable Disposition: PACU Indications for Procedure: The patient is 43. For 2 weeks he has had a stone lodged at his ureterovesical junction. His 8 mm. He is still having pain. He comes for ureteroscopic stone extraction Description of Procedure: Patient is brought to the operating suite. He is given general endotracheal anesthesia. He's placed lithotomy position with sterile prep and drape. Cystoscopy Foroblique lens and 22-[place] sheath identifies a normal urethra. The prostate is not obstructing. Upon entering the bladder wall the right ureteral orifice was normal but the left is notably edematous. The opening is somewhat tight. I thus dilate ureteral orifice with an 8-[place] cone-tipped catheter. I passed a 7-[place] mini ureteroscope up to the stone. The stone is too large to pass through the opening. His belly 89 mm. It is quite jagged. With the 365 laser probe was broken into tiny pieces and flushed out of the ureter. The ureters too edematous not to place a stent. An 035 wires and passed up the ureter and over the wires passed a 6 x 26 double-J catheter that coils in the renal pelvis and the bladder bladder strain the patient's awake and returned recovery in good condition. He tolerated procedure well stones will be sent to pathology. From urologic standpoint he can be discharged home later today. I will remove his stent next week.
[2018-12-29 12:25] VITALS: TEMP 99.2
[2018-12-29 12:32] VITALS: RESP 16
--- NOTE | 2018-12-29 13:27 | FL ---
EXAMINATION TYPE: FL guidance operating room DATE OF EXAM: 12/29/2018 CLINICAL HISTORY: Fluoroscopy documentation during left-sided lithotripsy. TECHNIQUE: Fluoroscopy. COMPARISON: None. FINDINGS: Fluoroscopic guidance was provided during pain relief procedure performed by Dr. Belle. A total of 30 seconds of fluoroscopic time was utilized during the procedure and 1 spot images are ac quired. Image acquired shows left ureteral stent. IMPRESSION: As Above.
[2018-12-29 15:43] VITALS: BP 120/80; PULSE 87
--- NOTE | 2018-12-29 16:17 | P.DS ---
Providers Date of admission: 12/28/18 06:30 Expected date of discharge: 12/29/18 Attending physician: Yoni Mckeon Consults: 12/28/18 06:31 Consult Physician Routine Consulting Provider: Vega Renee Consult Reason/Comments: Ileus versus small bowel obstruction Do you want consulting provider notified?: Yes 12/28/18 07:01 Consult Physician Routine Consulting Provider: Imer Belle Consult Reason/Comments: Obstructing renal calculus with hydronephrosis Do you want consulting provider notified?: Already Contacted Primary care physician: Yoni Mckeon - Discharge Diagnosis(es) (1) Nephrolithiasis Current Visit: Yes Status: Acute (2) Hydronephrosis concurrent with and due to calculi of kidney and ureter Current Visit: Yes Status: Acute (3) Small bowel obstruction Current Visit: Yes Status: Acute Hospital Course: This is discharge home in a 43-year-old white male essentially admitted for partial small bowel obstruction and nephrolithiasis. The patient is essentially undergone cystoscopy with lithotripsy. The patient tolerated procedure well and will follow up once cleared by general surgery and is tolerating diet and voiding without difficulty. Patient Condition at Discharge: Fair Plan - Discharge Summary Discharge Rx Participant: No New Discharge Prescriptions: Continue Multivitamins, Thera [Multivitamin (formulary)] 1 tab PO DAILY Ibuprofen [Motrin Ib] 400 mg PO Q6H PRN PRN Reason: Pain Omeprazole Magnesium [PriLOSEC OTC] 20 mg PO DAILY PRN PRN Reason: Heartburn Discharge Medication List Ibuprofen [Motrin Ib] 400 mg PO Q6H PRN 02/18/18 [History] Multivitamins, Thera [Multivitamin (formulary)] 1 tab PO DAILY 02/18/18 [History] Omeprazole Magnesium [PriLOSEC OTC] 20 mg PO DAILY PRN 12/28/18 [History] Follow up Appointment(s)/Referral(s): César Maldonado MD [STAFF PHYSICIAN] - 01/04/19 10:40 am (Cystoscopy with stent removal) Yoni Mckeon MD [Primary Care Provider] - 3 Days Patient Instructions/Handouts: Kidney Stones (DC), Cystoscopy (DC), Lithotripsy (DC)
== END 2018-12-29 17:19 | disposition home or self-care (01) | DRG 660 ==
LOC: EC 04:29 → 4SSUR 06:30
PROVIDERS: ADMIT Family Medicine; ATTEND Family Medicine
PROC: 0TC78ZZ Extirpation of Matter from Left Ureter, Via Natural or Artificial Opening Endoscopic (ICD-10-PCS; principal; 2018-12-29 09:55)
PROC: 0T778DZ Dilation of Left Ureter with Intraluminal Device, Via Natural or Artificial Opening Endoscopic (ICD-10-PCS; principal; 2018-12-29 09:55)
DX: N13.2 Hydronephrosis with renal and ureteral calculous obstruction (principal); K56.600 Partial intestinal obstruction, unspecified as to cause; K52.9 Noninfective gastroenteritis and colitis, unspecified; E86.0 Dehydration; Z87.442 Personal history of urinary calculi; Z87.891 Personal history of nicotine dependence; Z90.49 Acquired absence of other specified parts of digestive tract
CPT/HCPCS: 36415; 74018; 74177; 80053; 81001; 82365; 83690; 85025; 85027; 87086; 96361; 96374; 96375; 96376; 99285

== ENCOUNTER → 2019-11-28 | Outpatient (CLI) | payer BC ==
--- NOTE | 2019-11-28 17:11 | US ---
EXAMINATION TYPE: US kidneys/renal and bladder DATE OF EXAM: 11/28/2019 COMPARISON: None. CLINICAL HISTORY: 44-year-old male R80.9 POSITIVE MICROALBUMINURIA. History of renal stones. No pain at this time. TECHNIQUE: Multiple sonographic images of the kidneys and latter are obtained. FINDINGS: EXAM MEASUREMENTS: Right Kidney: 12.7 x 6.1 x 6.9 cm Left Kidney: 12.2 x 6.3 x 6.3 cm Right Kidney: No hydronephrosis. Left Kidney: lower pole echogenic focus= 0.6 x 0.6 cm. No hydronephrosis. Bladder: distended, anechoic Bilateral Jets not seen IMPRESSION: No hydronephrosis. 6 mm nonobstructive left lower pole renal calculus.
== END | disposition home or self-care (01) ==
LOC: RADUSWWP 15:32
PROVIDERS: ATTEND Family Medicine
DX: N20.0 Calculus of kidney (principal)
CPT/HCPCS: 76770

== ENCOUNTER → 2019-12-07 | Outpatient (CLI) | payer BC | END | disposition home or self-care (01) | LOC: LABWHC1 12:10 | PROVIDERS: ATTEND Emergency Medicine | DX: Z20.828 Contact with and (suspected) exposure to other viral communicable diseases (principal) | CPT/HCPCS: U0003; C9803 ==

== ENCOUNTER → 2020-09-11 | Outpatient (CLI) | payer BC ==
--- NOTE | 2020-09-11 14:37 | XR ---
EXAMINATION TYPE: XR KUB DATE OF EXAM: 09/11/2020 Comparison: 12/28/2018 Clinical History: 45-year-old male right lower flank pain, N20.0, N20.1 Findings: Surgical clips periphery of the right mid abdomen. Tiny round calcifications in the pelvis probably p hleboliths. Nonobstructive bowel gas pattern. Mild within the right side of the colon or rectum. Impression: 4 mm and smaller rounded calcifications in the pelvis, likely phleboliths. Clinical correlation will be needed to exclude the possibility of a distal ureteral calculus. Nonobstructive bowel gas pattern.
== END | disposition home or self-care (01) ==
LOC: RADXRMAIN 10:19
PROVIDERS: ATTEND Urology
DX: N20.0 Calculus of kidney (principal); N20.1 Calculus of ureter
CPT/HCPCS: 74018

== ENCOUNTER → 2021-04-25 | Outpatient (CLI) | payer BC ==
--- NOTE | 2021-04-25 16:17 | US ---
EXAMINATION TYPE: US kidneys/renal and bladder DATE OF EXAM: 04/25/2021 COMPARISON: CT abdomen and pelvis December 28, 2018. CLINICAL HISTORY: N18.2 CKD STAGE 2. CKD 2 EXAM MEASUREMENTS: Right Kidney: 10.9 x 5.9 x 5.7 cm Left Kidney: 11.7 x 6.0 x 5.1 cm Right Kidney: No hydronephrosis or masses seen Left Kidney: No hydronephrosis or masses seen Bladder: wnl Bilateral Jets seen: Yes There is no evidence for hydronephrosis at this point in time. No nephrolithiasis is seen. No ellen s are identified. The urinary bladder is not greatly distended. Bilateral ureteral jets are seen. IMPRESSION: Unremarkable study.
== END | disposition home or self-care (01) ==
LOC: RADUSWWP 15:37
PROVIDERS: ATTEND Internal Medicine
DX: N18.2 Chronic kidney disease, stage 2 (mild) (principal)
CPT/HCPCS: 76770

== ENCOUNTER → 2024-07-20 | Outpatient (CLI) | payer BC ==
--- NOTE | 2024-07-20 21:16 | CT ---
EXAMINATION TYPE: CT brain wo con DATE OF EXAM: 07/20/2024 9:34 AM COMPARISON: None. CLINICAL INDICATION: Male, 49 years old with history of R41.82 ALTERED MENTAL STATUS, UNSPECIFIED, ne ar syncope, left sided tmj pain TECHNIQUE: CT of the brain is performed utilizing 3 mm thick sections through the posterior fossa and 3 mm thick sections through the remaining calvarium. Study is performed within 24 hours of arrival to the hospital. Contrast used: mL of , (none if empty) CT DLP: 1053.1 mGycm, Automated exposure control for dose reduction was used. FINDINGS: No abnormal hyperdensity is present to suggest an acute intracranial hemorrhage. No mass lesion is evident. No acute infarcts are evident. Ventricles and sulci are appropriate for the patient age. There is a small retention cyst in the lateral right maxillary sinus Paranasal sinuses and mastoid ai r cells within the [id number] are otherwise clear. Left temporomandibular junction appears unremarkable IMPRESSION: 1. No acute intracranial process. Follow up MRI can be performed as clinically indicated. [facility], , 07/20/2024 9:14 PM
== END | disposition home or self-care (01) ==
LOC: RADCTMAIN 08:15
PROVIDERS: ATTEND Family Medicine
DX: R41.82 Altered mental status, unspecified (principal)
CPT/HCPCS: 70450